=== PATIENT | female | born 1940 | race Two or more races ===

== ENCOUNTER 2018-09-28 05:50 | Day surgery (SDC) | payer OTHER ==
[~2018-09-28 05:50] MED LIST: ALDACTONE25 MG PO; ATACAN PO; COREG PO; COUMADIN4 MG PO; COUMADIN5 MG PO; CRESTOR5 MG PO; METFORMIN HCL500 MG PO; MULTIPLE VITAM1 EACH PO; PREVISION PO; SYNTHROID75 MCG PO; [UNRECOGNIZED DRUG - OTHER] PO
[2018-09-28] MEDS ORDERED: PERCOCET 5-3251 EACH PO (14:42)
[2018-09-28] MEDS ORDERED: POLY119PG PO (14:43)
[2018-09-28] MEDS ORDERED: NEURONTIN300 MG PO (14:43)
== END 2018-09-28 16:15 | disposition home or self-care (01) ==
LOC: CIR.AMB 05:50
DX: K43.0 Incisional hernia with obstruction, without gangrene (principal); K66.0 Peritoneal adhesions (postprocedural) (postinfection)

== ENCOUNTER 2025-01-03 04:03 | Emergency (ER) | payer OTHER ==
[~2025-01-03] VITALS: Ht 167.6 cm; Wt 63.5 kg
[~2025-01-03 04:03] MED LIST changes: +NEURONTIN300 MG PO; +PERCOCET 5-3251 EACH PO; +POLY119PG PO
[2025-01-03 04:22] VITALS: BP 125/67; O2SAT 97
[2025-01-03] MEDS ORDERED: METRONIDAZOLE/SODIUM CHLORIDE 500 MG/100 ML PIGGYBACK IV STA (05:52)
[2025-01-03] MEDS ORDERED: CIPROFLOXACIN IN 5 % DEXTROSE 400 MG/200 ML PIGGYBAG IV STA (05:52)
[2025-01-03] MEDS ORDERED: KETOROLAC TROMETHAMINE 30 MG VIAL IV STA (05:53)
[2025-01-03] MEDS ORDERED: FAMOTIDINE/PF 20 MG/2 ML VIAL IV PUSH STA (05:53)
[2025-01-03] MEDS ORDERED: 0.9 % SODIUM CHLORIDE 1,000 ML IV ONE (06:00)
[2025-01-03] MEDS ORDERED: KETOROLAC TROMETHAMINE 30 MG VIAL ONE (06:02)
[2025-01-03] MEDS ORDERED: FAMOTIDINE/PF 20 MG/2 ML VIAL ONE (06:02)
[2025-01-03] MEDS ORDERED: METRONIDAZOLE/SODIUM CHLORIDE 500 MG/100 ML PIGGYBACK IV ONE (06:02)
[2025-01-03] MEDS ORDERED: CIPROFLOXACIN IN 5 % DEXTROSE 400 MG/200 ML PIGGYBAG IV ONE (06:02)
[2025-01-03] MEDS ORDERED: BARIUM SULFATE 450 ML ORAL.SUSP PO ONE (06:03)
[2025-01-03 06:51] LABS: BASO % 0.8 % (0.1-1.2); EOS # 0.09 (0.04-0.54); EOS % 1.9 % (0.7-7.0); HEMATOCRIT 39.3 % (34.1-44.9); LYMPH # 1.47 (1.18-3.74); LYMPH % 30.6 % (19.3-53.1); MEAN CORPUSCULAR HEMOGLOBIN 33.2 pg (25.6-32.2); MONO # 0.44 (0.24-0.82); MONO % 9.1 % (4.7-12.5); NEUT # 2.76 (1.56-6.13); NEUT % 57.4 % (34.0-71.1); PLATELET COUNT 152 K/uL (163-369); RED BLOOD COUNT 3.91 M/uL (3.93-5.22)
[2025-01-03 07:11] LABS: INR 1.26; PROTHROMBIN TIME 13.5 SECONDS (9.0-11.5)
[2025-01-03 07:23] LABS: BILIRUBIN TOTAL 0.97 mg/dL (0.3-1.2); CALCIUM 10.2 mg/dL (8.5-10.1); CREATININE SERUM 0.98 mg/dL (0.55-1.02); GFR 54.07; GLOBULINA 4.2 G/DL (2.4-3.5); POTASSIUM 4.44 mEq/L (3.5-5.1); TOTAL PROTEIN 8.2 gm/dL (6.4-8.2)
== END 2025-01-03 12:55 | disposition home or self-care (01) ==
LOC: ER 04:56
PROVIDERS: General Practice
DX: R10.32 Left lower quadrant pain (principal); N28.1 Cyst of kidney, acquired; Q63.2 Ectopic kidney; I70.8 Atherosclerosis of other arteries; E11.9 Type 2 diabetes mellitus without complications; Z79.84 Long term (current) use of oral hypoglycemic drugs; I10 Essential (primary) hypertension; Z88.2 Allergy status to sulfonamides; Z88.8 Allergy status to other drugs, medicaments and biological substances
CPT/HCPCS: 36415; 74176; 96365; 96366; 99283; J0744; J1885; J3490